=== PATIENT | male | born 1995 | race Caucasian/White ===

== ENCOUNTER 2018-05-15 13:56 | Emergency (ER) | payer OTHER ==
[~2018-05-15] VITALS: Ht 170.2 cm; Wt 63.2 kg
[2018-05-15 14:02] VITALS: BP 144/77
--- NOTE | 2018-05-15 14:08 | NUR ---
PT BLOOD SUGAR 120 AT THIS TIME. HAS NOT EATEN TODAY. NO HX DM
--- NOTE | 2018-05-15 14:10 | NUR ---
PATIENT PRESENTS TO ED WITH 23 YO M BIB PARENTS W/ C/O VOMITING X 2 WEEKS. PT STATES HE HAS CHILLS. DENIES FEVER. DENEIS ABD PAIN AND DIARRHEA. REPORTS HE FEELS LIKE HIS BODY IS SHUTTING DOWN. STATES "I CANNOT CLOSE MY HANDS ALL THE WAY". PT AAOX4, GCS 15. ABD SOFT, NON-TENDER. RR EVEN AND UNLABORED. SKIN WARM/DRY TO THE TOUCH. SPEAKING IN FULL, COMPLETE SENTENCES. COLOR APPROPRIATE FOR ETHNICITY. HX DEPRESSION/ANXIETY . DENIES PAIN; VSS; PATIENT POSITIONED FOR COMFORT; HOB ELEVATED; BEDRAILS UP X2; BED DOWN. ER MD MADE AWARE OF PT STATUS.
--- NOTE | 2018-05-15 14:12 | NUR ---
Patient being evaluated by physician at bedside.
[2018-05-15] MEDS ORDERED: NACL 0.9% 1,000 ML IV SCH (14:24)
[2018-05-15] MEDS ORDERED: PROMETHAZINE 25 MG/ML VIAL IM ONE (14:25)
[2018-05-15] MEDS ORDERED: ONDANSETRON 4 MG/2 ML VIAL IVP ONE (14:25)
[2018-05-15] MEDS ORDERED: NACL 0.9% 2,000 ML IV SCH (14:26)
[2018-05-15] MEDS ORDERED: HALOPERIDOL IM 5 MG/ML VIAL IM ONE (14:30)
[2018-05-15] MEDS ORDERED: METOCLOPRAMIDE 10 MG/2 ML INJ VIAL IVP ONE (14:30)
[2018-05-15] MEDS ORDERED: diphenhydrAMINE 50 MG/ML VIAL IVP ONE (14:30)
[2018-05-15] MEDS ORDERED: FAMOTIDINE 20 MG/2 ML VIAL IVP ONE (14:30)
[2018-05-15] MEDS ORDERED: GLYCOPYRROLATE 0.2 MG/ML VIAL IV ONE (14:30)
[2018-05-15 14:45] LABS: BASOPHILS % (AUTO) 0.2 % (0.0-2.0); HEMATOCRIT 46.8 % (36-52); HEMOGLOBIN 15.5 g/dL (12.0-18.0); LYMPHOCYTES # (AUTO) 1.4 K/uL (2.0-11.5); LYMPHOCYTES % (AUTO) 11.8 % (20.5-51.1); MEAN CORPUSCULAR HEMOGLOBIN 31 pg (27-31); MEAN CORPUSCULAR HGB CONC 33 g/dL (33-37); MEAN CORPUSCULAR VOLUME 92.2 fL (80-94); MONOCYTES # (AUTO) 0.5 K/uL (0.8-1.0); MONOCYTES % (AUTO) 4.6 % (1.7-9.3); NEUTROPHILS # (AUTO) 9.9 K/uL (1.8-7.7); NEUTROPHILS % (AUTO) 83.4 % (42.2-75.2); PLATELET COUNT (AUTO) 236 K/uL (140-450); RED BLOOD CELL COUNT(AUTO) 5.08 MIL/uL (4.20-6.10); RED CELL DISTRIBUTION WIDTH 12.9 % (11.6-13.7); WHITE BLOOD COUNT (AUTO) 11.9 K/uL (4.8-10.8)
--- NOTE | 2018-05-15 14:50 | NUR ---
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
[2018-05-15 15:00] LABS: APPEARANCE,URINE CLEAR (CLEAR); BILIRUBIN,URINE NEGATIVE (NEGATIVE); BLOOD, URINE NEGATIVE (NEGATIVE); COLOR,URINE YELLOW (YELLOW); LEUKOCYTE ESTERASE ,URINE NEGATIVE (NEGATIVE); NITRITE, URINE NEGATIVE (NEGATIVE); UGLUCOSE NEGATIVE (NEGATIVE)
[2018-05-15 15:09] LABS: BARBITURATE, URINE NEG. ng/ml (NEG <=200); BENZODIAZEPINE, URINE NEG. ng/mL (NEG <=200); CANNABINOID, URINE POS. ng/mL (NEG <=50); COCAINE, URINE NEG. ng/mL (NEG <=300); OPIATE, URINE NEG. ng/mL (NEG <=2000); PHENCYCLIDINE SCREEN,URINE NEG. ng/mL (NEG <=25)
[2018-05-15 15:12] LABS: ACETONE, SERUM NEGATIVE (NEGATIVE); AMYLASE 46 U/L (25-115); ANION GAP 20.1 (8-16); ASPARTATE AMINOTRANSFERASE 17 U/L (15-37); CARBON DIOXIDE 23.6 mmol/L (21-32); CHLORIDE 99 mmol/L (98-107); CREATININE 1.1 mg/dL (0.7-1.3); GFR ARICAN-AMERICAN 108 mL/min (>90); GLUCOSE 124 mg/dL (74-106); LIPASE 125 U/L (73-393); POTASSIUM 3.7 mmol/L (3.5-5.1); SODIUM SERUM 139 mmol/L (136-145); TOTAL BILIRUBIN 0.8 mg/dL (0.0-1.0); UREA NITROGEN, BLOOD 16 mg/dL (7-18)
--- NOTE | 2018-05-15 17:06 | NUR ---
Patient discharged with v/s stable. Written and verbal after care instructions given and explained. Patient alert, oriented and verbalized understanding of instructions. Ambulatory with steady gait. All questions addressed prior to discharge. ID band removed. Patient advised to follow up with PMD. Rx of VISTARIL given. Patient educated on indication of medication including possible reaction and side effects. Opportunity to ask questions provided and answered.
[2018-05-15 17:07] VITALS: BP 125/75
--- NOTE | 2018-05-20 10:36 | NUR ---
Late entry. THe times have been flipped for 0.9 NS IV 1000ml. Start time should be 1506 with the end time of 1645
== END 2018-05-15 17:06 | disposition home or self-care (01) ==
LOC: MED 13:56
DX: G43.A0 Cyclical vomiting, in migraine, not intractable (principal); T40.7X5A Adverse effect of cannabis (derivatives), initial encounter; F32.9 Major depressive disorder, single episode, unspecified; F41.9 Anxiety disorder, unspecified; Y92.89 Other specified places as the place of occurrence of the external cause
CPT/HCPCS: 36415; 36600; 74176; 80053; 80305; 81003; 82009; 82150; 82803; 83690; 85025; 93005; 96361; 96372; 96374; 96375; 99284; G0482; J1200; J1630; J2405; J2550; J2765; J3490; J7030